=== PATIENT | male | born 1970 | race American Indian/Alaskan Native ===

== ENCOUNTER 2016-12-17 08:12 | Emergency (ER) | payer BC ==
[2016-12-17] MEDS ORDERED: MOTRIN PO ONE (12:52)
--- NOTE | 2016-12-17 14:33 | XRay Report ---
AP and lateral of the lumbar spine. History: Low back pain. Findings: Mild narrowing of the disc spaces noted at L5-S1. The remaining vertebral body heights and disc spaces are normal. Alignment is normal. The pedicles are intact. Spina bifida occulta is noted at S1.
--- NOTE | 2016-12-17 14:41 | XRay Report ---
THORACIC SPINE: The bones are normally mineralized with well preserved vertebral height, alignment and interspace distances. No paraspinal soft tissue widening is noted. IMPRESSION: Normal study.
[2016-12-17 15:41] VITALS: BP 118/74
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
== END 2016-12-17 15:41 | disposition home or self-care (01) ==
LOC: ED 08:12
DX: S39.012A Strain of muscle, fascia and tendon of lower back, initial encounter (principal); S29.012A Strain of muscle and tendon of back wall of thorax, initial encounter; S13.4XXA Sprain of ligaments of cervical spine, initial encounter; V43.52XA Car driver injured in collision with other type car in traffic accident, initial encounter; Y93.89 Activity, other specified; Y99.8 Other external cause status; Y92.89 Other specified places as the place of occurrence of the external cause
CPT/HCPCS: 72070; 72100; 99283